=== PATIENT | female | born 1955 | race Caucasian/White ===

== ENCOUNTER 2017-12-15 07:52 | Emergency (ER) | payer BC ==
[~2017-12-15] VITALS: Ht 162.6 cm; Wt 68.0 kg
[2017-12-15 07:53] VITALS: BP 172/105; PULSE 75; RESP 16; TEMP 98.4; O2SAT 96
[2017-12-15] MEDS ORDERED: IOHEXOL 350 MG/ML 10 ML VIAL (for RAD DIAG) IVCONTRAST ONE (07:53)
--- NOTE | 2017-12-15 07:59 | PD ---
HPI Chief Complaint: Pain: Acute or Chronic Time Seen by Provider: 07:59 Travel History International Travel<30 days: No Contact w/Intl Traveler<30days: No Traveled to known affect area: No History of Present Illness HPI 62-year-old female presents emergency Department with right anterior lateral neck pain for the past 2 days. Patient states is tender directly over her carotid artery and seems worse today than yesterday. Patient reports recent cold which is improving. Patient denies recent injury to the area. Patient denies shortness of breath or difficulty swallowing, although swelling does irritate the area. Pain is rated as an 8 out of 10. Patient denies numbness, tingling, or headache. Pain is worse with palpation of the area. There is no swelling noted. She has no known drug allergies. PFSH Past Medical History ?: Not Social History Alcohol Use: Yes Tobacco Use: No Substance Use: No Allergies-Medications (Allergen,Severity, Reaction): Coded Allergies: No Known Allergies (Unverified , 12/15/17) Reported Meds & Prescriptions Reported Meds & Active Scripts Active No Active Prescriptions or Reported Medications Review of Systems Except as stated in HPI: all other systems reviewed are Neg General / Constitutional: No: Fever Eyes: No: Visual changes HENT: Positive: Sore Throat, Neck Pain, No: Headaches, Vertigo, Lightheadedness , Rhinitis, Rhinorrhea, Congestion, Nosebleed ( see history present illness), Neck Stiffness (see history of present illness), Masses, Gingival Bleeding, Dental Difficulties, Ear Discharge, Earache Cardiovascular: No: Chest Pain or Discomfort Respiratory: No: Shortness of Breath Gastrointestinal: No: Abdominal Pain Genitourinary: No: Dysuria Musculoskeletal: No: Pain Skin: No Rash Neurologic: No: Weakness Psychiatric: No: Depression Endocrine: No: Polydipsia Hematologic/Lymphatic: No: Easy Bruising Physical Exam Narrative GENERAL: Patient appears in no acute distress. She has normal speech. SKIN: Warm and dry. Normal color. Normal turgor. No rash. HEAD: Atraumatic. Normocephalic. Nontender. EYES: Pupils equal and round. No scleral icterus. No injection or drainage. ENT: No nasal bleeding or discharge. Mucous membranes pink and moist. Pharynx is normal. Airway is patent. Uvula is midline. No significant lymphadenopathy is noted. NECK: Trachea midline. No JVD. Supple. Patient has point tenderness over the right carotid artery. No bruits appreciated. No thrill. CARDIOVASCULAR: Regular rate and rhythm. No murmurs gallops or rubs. RESPIRATORY: No accessory muscle use. Clear to auscultation. Breath sounds equal bilaterally. GASTROINTESTINAL: Abdomen soft, non-tender, nondistended. Hepatic and splenic margins not palpable. MUSCULOSKELETAL: Extremities without clubbing, cyanosis, or edema. No obvious deformities. NEUROLOGICAL: Awake and alert. No obvious cranial nerve deficits. Motor grossly within normal limits. Five out of 5 muscle strength in the arms and legs. Normal speech. PSYCHIATRIC: Appropriate mood and affect; insight and judgment normal. Data Data Last Documented VS Vital Signs Date Time Temp Pulse Resp B/P (MAP) Pulse Ox O2 Delivery O2 Flow Rate FiO2 12/15/17 08:01 97 Room Air 12/15/17 07:53 98.4 75 16 Orders Orders Complete Blood Count With Diff (12/15/17 08:03) Comprehensive Metabolic Panel (12/15/17 08:03) Prothrombin Time / Inr (Pt) (12/15/17 08:03) Act Partial Throm Time (Ptt) (12/15/17 08:03) Iv Access Insert/Monitor (12/15/17 08:03) Ecg Monitoring (12/15/17 08:03) Oximetry (12/15/17 08:03) Sodium Chlor 0.9% 1000 Ml Inj (Ns 1000 M (12/15/17 08:03) Sodium Chloride 0.9% Flush (Ns Flush) (12/15/17 08:15) Electrocardiogram (12/15/17 08:03) Ckmb (Isoenzyme) Profile (12/15/17 08:03) Troponin I (12/15/17 08:03) Ct Soft Tiss Neck W Iv Cont (12/15/17 ) Iohexol 350 Inj (Omnipaque 350 Inj) (12/15/17 07:53) Labs Laboratory Tests Test 12/15/17 08:10 White Blood Count 9.9 TH/MM3 Red Blood Count 4.45 MIL/MM3 Hemoglobin 14.3 GM/DL Hematocrit 42.0 % Mean Corpuscular Volume 94.3 FL Mean Corpuscular Hemoglobin 32.0 PG Mean Corpuscular Hemoglobin Concent 34.0 % Red Cell Distribution Width 13.7 % Platelet Count 264 TH/MM3 Mean Platelet Volume 9.0 FL Neutrophils (%) (Auto) 61.1 % Lymphocytes (%) (Auto) 28.4 % Monocytes (%) (Auto) 8.8 % Eosinophils (%) (Auto) 1.2 % Basophils (%) (Auto) 0.5 % Neutrophils # (Auto) 6.0 TH/MM3 Lymphocytes # (Auto) 2.8 TH/MM3 Monocytes # (Auto) 0.9 TH/MM3 Eosinophils # (Auto) 0.1 TH/MM3 Basophils # (Auto) 0.1 TH/MM3 CBC Comment DIFF FINAL Differential Comment Prothrombin Time 9.6 SEC Prothromb Time International Ratio 0.9 RATIO Activated Partial Thromboplast Time 26.8 SEC Blood Urea Nitrogen 17 MG/DL Creatinine 0.80 MG/DL Random Glucose 96 MG/DL Total Protein 7.7 GM/DL Albumin 3.8 GM/DL Calcium Level 9.0 MG/DL Alkaline Phosphatase 80 U/L Aspartate Amino Transf (AST/SGOT) 17 U/L Alanine Aminotransferase (ALT/SGPT) 20 U/L Total Bilirubin 0.4 MG/DL Sodium Level 140 MEQ/L Potassium Level 4.1 MEQ/L Chloride Level 106 MEQ/L Carbon Dioxide Level 26.4 MEQ/L Anion Gap 8 MEQ/L Estimat Glomerular Filtration Rate 73 ML/MIN Total Creatine Kinase 68 U/L Troponin I LESS THAN 0.02 NG/ML MDM Medical Decision Making Medical Screen Exam Complete: Yes Emergency Medical Condition: Yes Differential Diagnosis Carotidynia. Abscess. Vascular bleed in the neck. Possible aneurysm. Cardiac syndrome. Narrative Course Patient appears stable at time of exam Labs ordered including CBC, CMP, cardiac panel and coagulation studies. EKG shows normal sinus rhythm without ST changes. CT of the neck soft tissues with IV contrast was ordered. Labs are unremarkable including a negative troponin at 0.02. CT of the neck shows: Unremarkable CT scan soft tissue neck except for small cyst right thyroid lobe. Recommended treatment with meloxicam 7.5 mg twice a day 7 days. Patient is to follow with her primary care physician, or return to emergency Department with worsening symptoms as needed. Diagnosis Primary Impression: Carotodynia Referrals: Primary Care Physician Patient Instructions: Acute Neck Pain (ED), General Instructions Additional Instructions: Labs ordered including CBC, CMP, cardiac panel and coagulation studies. EKG shows normal sinus rhythm without ST changes. CT of the neck soft tissues with IV contrast was ordered. Labs are unremarkable including a negative troponin at 0.02. CT of the neck shows: Unremarkable CT scan soft tissue neck except for small cyst right thyroid lobe. Recommended treatment with meloxicam 7.5 mg twice a day 7 days. Patient is to follow with her primary care physician, or return to emergency Department with worsening symptoms as needed. Med/Other Pt SpecificInfo: Prescription(s) given Scripts No Active Prescriptions or Reported Meds Disposition: 01 DISCHARGE HOME Condition: Stable [place] Naranjo Dec 15, 2017 07:59
[2017-12-15 08:01] VITALS: O2SAT 97
[2017-12-15] MEDS ORDERED: SODIUM CHLOR 0.9% 1000 ML INJ 1,000 ML IV SCH (08:03)
[2017-12-15] MEDS ORDERED: SODIUM CHLORIDE 0.9% FLUSH 10 ML FLUSH IV FLUSH PRN (08:15)
[2017-12-15 08:25] LABS: BASOPHIL # 0.1 TH/MM3 (0-0.2); BASOPHIL % 0.5 % (0.0-2.0); EOSINOPHIL # 0.1 TH/MM3 (0-0.4); EOSINOPHIL % 1.2 % (0.0-4.0); HEMOGLOBIN 14.3 GM/DL (11.6-15.3); LYMPH % 28.4 % (9.0-44.0); LYMPHOCYTE # 2.8 TH/MM3 (1.0-4.8); MEAN CELL VOLUME 94.3 FL (80.0-100.0); MONO % 8.8 % (0.0-8.0); MONOCYTE # 0.9 TH/MM3 (0-0.9); NEUT % 61.1 % (16.0-70.0); PLATELET COUNT 264 TH/MM3 (150-450); RED BLOOD COUNT 4.45 MIL/MM3 (4.00-5.30); RED CELL DISTRIBUTION WIDTH 13.7 % (11.6-17.2); WHITE BLOOD COUNT 9.9 TH/MM3 (4.0-11.0)
[2017-12-15 08:37] LABS: INTERNATIONAL NORMALIZED RATIO 0.9 RATIO; PROTHROMBIN TIME - PATIENT 9.6 SEC (9.8-11.6)
[2017-12-15 08:40] LABS: ALBUMIN 3.8 GM/DL (3.4-5.0); ALT (GPT) 20 U/L (10-53); AST (GOT) 17 U/L (15-37); BICARBONATE 26.4 MEQ/L (21.0-32.0); BLOOD UREA NITROGEN 17 MG/DL (7-18); CHLORIDE 106 MEQ/L (98-107); GLOMERULAR FILTRATION RATE 73 ML/MIN (>89); GLUCOSE,RANDOM 96 MG/DL (74-106); SODIUM (NA) 140 MEQ/L (136-145)
[2017-12-15 08:43] LABS: ALKALINE PHOSPHATASE 80 U/L (45-117); TOTAL BILIRUBIN ADULT 0.4 MG/DL (0.2-1.0); TOTAL PROTEIN 7.7 GM/DL (6.4-8.2); TROPONIN I LESS THAN 0.02 NG/ML (0.02-0.05)
--- NOTE | 2017-12-15 10:00 | RADRPT ---
EXAM DATE/TIME: 12/15/2017 09:17 [facility] COMPARISON: No previous studies available for comparison. INDICATIONS : Right side neck pain for two days. IV CONTRAST: 50 cc Omnipaque 350 (iohexol) IV RADIATION DOSE: 14.10 CTDIvol (mGy) MEDICAL HISTORY : None SURGICAL HISTORY : None. ENCOUNTER: Initial ACUITY: 2 days PAIN SCALE: 5/10 LOCATION: Right neck TECHNIQUE: Volumetric scanning of the neck was performed. Using automated exposure control and adjustment of th e mA and/or kV according to patient size, radiation dose was kept as low as reasonably achievable to obtain optimal diagnostic quality images. DICOM format image data is available electronically for r eview and comparison. FINDINGS: NASOPHARYNX: The nasopharyngeal airway has a normal configuration. No mucosal thickening or mass is seen. OROPHARYNX: The intrinsic muscles of the tongue are symmetric. The tonsillar pillars are intact. The prevertebr al soft tissues are not thickened. LARYNX: The supraglottic, glottic, and infraglottic structures are intact. PARAPHARYNGEAL: The parapharyngeal space is intact. SALIVARY GLANDS: The parotid and submandibular glands are intact. LYMPH NODES: No enlarged or necrotic-appearing nodes. THYROID: Homogeneous enhancement 1.9 cm benign-appearing cyst in the right lobe. BONES: Unremarkable. CONCLUSION: Unremarkable CT scan soft tissue neck except for small cyst right thyroid lobe. Kel Delgado MD on December 15, 2017 at 9:55 Board Certified Radiologist. This report was verified electronically.
[2017-12-15] MEDS ORDERED: MELO7.5T27 PO (10:08)
[2017-12-15 10:28] VITALS: BP 167/91
--- NOTE | 2017-12-15 11:22 | EKG ---
Date Performed: 12/15/2017 Time Performed: 08:16:24 PTAGE: 62 years EKG: Sinus rhythm POSSIBLE LEFT ATRIAL ENLARGEMENT BORDERLINE ECG INTERPRETATION BASED ON A DEFAULT AGE OF 42 YEARS NO PREVIOUS TRACING DOCTOR: Kel Love Interpretating Date/Time 12/15/2017 11:21:22
== END 2017-12-15 10:28 | disposition home or self-care (01) ==
LOC: NEPD 07:52
DX: G90.01 Carotid sinus syncope (principal); E04.1 Nontoxic single thyroid nodule
CPT/HCPCS: 70491; 80053; 82550; 84484; 85025; 85610; 85730; 93005; 99285; J7030; Q9967